=== PATIENT | male | born 1955 | race Native Hawaiian/Other Pacific Islander ===

== ENCOUNTER 2019-06-21 07:28 | Outpatient (CLI) | payer OTHER ==
[2019-06-21 08:09] LABS: PLATELET COUNT 262 K/uL (142-355)
[2019-06-21 08:40] LABS: POTASSIUM 4.9 mmol/L (3.6-5.2)
== END 2019-06-21 19:25 | disposition home or self-care (01) ==
LOC: LABW 07:28
PROVIDERS: Internal Medicine
DX: I10 Essential (primary) hypertension (principal); Z12.5 Encounter for screening for malignant neoplasm of prostate
CPT/HCPCS: 36415; 80053; 80061; 81000; 84153; 84443; 85027

== ENCOUNTER 2020-04-01 08:13 | Outpatient (CLI) | payer OTHER ==
[2020-04-01 08:58] LABS: POTASSIUM 4.5 mmol/L (3.6-5.2)
[2020-04-01 09:59] LABS: PLATELET COUNT 236 K/uL (142-355)
== END 2020-04-01 19:27 | disposition home or self-care (01) ==
LOC: LABW 08:13
PROVIDERS: Nurse Practitioner Family
DX: E78.00 Pure hypercholesterolemia, unspecified (principal); M06.4 Inflammatory polyarthropathy; M15.0 Primary generalized (osteo)arthritis
CPT/HCPCS: 36415; 80053; 80061; 81000; 84439; 84443; 84550; 85027; 85651; 86140

== ENCOUNTER 2021-06-08 15:30 | Outpatient (CLI) | payer OTHER | END 2021-06-08 19:24 | disposition home or self-care (01) | LOC: US 15:30 | PROVIDERS: ATTEND Internal Medicine | DX: M79.89 Other specified soft tissue disorders (principal) ==

== ENCOUNTER 2021-09-01 15:41 | Outpatient (CLI) | payer OTHER | END 2021-09-01 19:07 | disposition home or self-care (01) | LOC: RAD 15:41 | PROVIDERS: ATTEND Orthopaedic Surgery | DX: M54.59 Other low back pain (principal) ==

== ENCOUNTER 2021-12-15 14:49 | Outpatient (CLI) | payer OTHER | END 2021-12-15 19:01 | disposition home or self-care (01) | LOC: US 14:49 | PROVIDERS: ATTEND Internal Medicine | DX: N50.89 Other specified disorders of the male genital organs (principal) ==

== ENCOUNTER 2022-11-09 14:44 | Outpatient (CLI) | payer OTHER | END 2022-11-09 19:05 | disposition home or self-care (01) | LOC: MRI 14:44 | PROVIDERS: ATTEND Orthopaedic Surgery | DX: S83.241A Other tear of medial meniscus, current injury, right knee, initial encounter (principal); Y92.89 Other specified places as the place of occurrence of the external cause ==